=== PATIENT | female | born 1995 | race Caucasian/White ===

== ENCOUNTER 2022-12-19 12:05 | Emergency (ER) | payer MEDICAID ==
[~2022-12-19] VITALS: Ht 160 cm; Wt 90.7 kg
[2022-12-19 12:05] VITALS: BP_SYST 133
--- NOTE | 2022-12-19 12:10 | NUR ---
Patient triaged and placed in waiting room. VSS and patient appears in no acute distress at this time. Accompanied by SELF, awaiting available bed, and MD notified of need for MSE.
--- NOTE | 2022-12-19 12:20 | NUR ---
PT STATES TWO DAYS WITH SMALL RASH ON RIGHT SIDE OF FACE, NOW SPREADING TO RIGHT CHIN AREA. ++ITCHY
--- NOTE | 2022-12-19 12:40 | NUR ---
AWAITING ER BED AVAILABILITY
--- NOTE | 2022-12-19 15:38 | NUR ---
BROUGHT BACK TO [facility] BED AND REPORT GIVEN TO KATHERINE
--- NOTE | 2022-12-19 18:20 | NUR ---
DR FROST IN [facility] TO SEE PT
[2022-12-19] MEDS ORDERED: CEPH-548 PO (18:39)
[2022-12-19] MEDS ORDERED: CLOT24CR2 TP (18:39)
--- NOTE | 2022-12-19 18:55 | NUR ---
Patient given written and verbal discharge instructions and verbalizes understanding. ER MD discussed with patient the results and treatment provided. Patient in stable condition. ID arm band removed. Rx of KEFLEX, LOTRIMIN AF given. Patient educated on pain management and to follow up with PMD. Pain Scale . Opportunity for questions provided and answered. Medication side effect fact sheet provided.
[2022-12-19 18:56] VITALS: BP_SYST 133
== END 2022-12-19 18:56 | disposition home or self-care (01) ==
LOC: SED 12:05
DX: B35.4 Tinea corporis (principal); L01.00 Impetigo, unspecified; Z79.899 Other long term (current) drug therapy
CPT/HCPCS: 99283

== ENCOUNTER 2023-04-22 08:35 | Emergency (ER) | payer SELFPAY ==
[~2023-04-22] VITALS: Ht 157.5 cm; Wt 86.2 kg
[2023-04-22 08:35] VITALS: BP_SYST 138; PULSE 77; RESP 17; TEMP 97.8; O2SAT 97
[~2023-04-22 08:35] MED LIST: CEPH-548 PO; CLOT24CR2 TP
--- NOTE | 2023-04-22 08:35 | NUR ---
BROUGHT BACK TO BED #4 AND TRIAGED, REPORT GIVEN TO SHERIDAN
--- NOTE | 2023-04-22 08:47 | NUR ---
In ER bed 4 C/O L ear pain Awaiting
[2023-04-22] MEDS ORDERED: CARB15DR93 EACH EAR (09:11)
[2023-04-22] MEDS ORDERED: IBUP-1969 PO (09:11)
[2023-04-22] MEDS ORDERED: CETI1TAB2 PO (09:11)
[2023-04-22] MEDS ORDERED: AMOX500C2 PO (09:11)
--- NOTE | 2023-04-22 09:24 | NUR ---
Patient given written and verbal discharge instructions and verbalizes understanding. ER MD discussed with patient the results and treatment provided. Patient in stable condition. ID arm band removed. Rx given. Patient educated on pain management and to follow up with PMD. Pain Scale . Opportunity for questions provided and answered. Medication side effect fact sheet provided.
== END 2023-04-22 09:24 | disposition home or self-care (01) ==
LOC: SED 08:35
DX: H61.22 Impacted cerumen, left ear (principal); H66.92 Otitis media, unspecified, left ear; R51.9 Headache, unspecified; Z79.899 Other long term (current) drug therapy
CPT/HCPCS: 99283